=== PATIENT | male | born 1995 ===

== ENCOUNTER 2019-02-06 17:40 | Emergency (ER) | payer MEDICAID, OTHER ==
[2019-02-06 17:50] VITALS: RESP 18
--- NOTE | 2019-02-06 18:09 | ED PDOC ---
Lower Extremity Pain/Injury Time Seen by Provider: 02/06/19 17:54 Chief Complaint (Nursing): Lower Extremity Problem/Injury Chief Complaint (Provider): Left Knee Pain History Per: Patient History/Exam Limitations: no limitations Onset/Duration Of Symptoms: Days (x1) Current Symptoms Are (Timing): Still Present Additional Complaint(s): 23 year old male presents to the ED for evaluation of a left knee injury. Patient states "I subluxed my patella" yesterday during a trip and fall down one step landing on the knee. He reports since having decreased ROM, swelling, and pain to the knee. Otherwise, denies numbness and tingling. Of note, patient has a previous left knee surgery. PMD: Mane Sahni Past Medical History Reviewed: Historical Data, Nursing Documentation, Vital Signs Vital Signs: Last Vital Signs Temp 98.5 F 02/06/19 17:49 Pulse 56 L 02/06/19 17:49 Resp 18 02/06/19 17:49 BP 132/76 02/06/19 17:49 Pulse Ox 98 02/06/19 17:49 - Medical History PMH: No Chronic Diseases - Surgical History Other surgeries: left knee surgery - Family History Family History: States: Unknown Family Hx - Living Arrangements Living Arrangements: With Family - Social History Current smoker - smoking cessation education provided: No Alcohol: None Drugs: Denies - Allergies Allergies/Adverse Reactions: Allergies Allergy/AdvReac Type Severity Reaction Status Date / Time No Known Allergies Allergy Verified 02/06/19 17:48 Review of Systems ROS Statement: Except As Marked, All Systems Reviewed And Found Negative Musculoskeletal: Positive for: Other (left knee pain and swelling) Neurological: Negative for: Numbness (or tingling) Physical Exam - Reviewed Nursing Documentation Reviewed: Yes Vital Signs Reviewed: Yes - Physical Exam Appears: Positive for: No Acute Distress Head Exam: Positive for: ATRAUMATIC, NORMOCEPHALIC Skin: Positive for: Normal Color, Warm, Dry Eye Exam: Positive for: Normal appearance Neck: Positive for: Normal, Painless ROM, Supple Cardiovascular/Chest: Positive for: Regular Rate, Rhythm Respiratory: Positive for: Normal Breath Sounds. Negative for: Respiratory Distress Pulses-Dorsalis Pedis (L): 2+ Pulses-Dorsalis Pedis (R): 2+ Pulses-Post. Tibialis (L): 2+ Pulses-Post. Tibialis (R): 2+ Back: Positive for: Normal Inspection Extremity: Positive for: Swelling (effusion circumferential around patella), Other (posterior drawer test equivocally positive; anterior drawer test negative; valgus / varus laxity negative; old surgical incision noted over patella with scar tissue around distal edge) Neurological/Psych: Positive for: Awake, Alert, Oriented (x3) - ECG O2 Sat by Pulse Oximetry: 98 (RA) Pulse Ox Interpretation: Normal Medical Decision Making Medical Decision Making: Time: 1804 Initial Impression: r/o left knee fracture Initial Plan: --Toradol 60mg IM --Tylenol 650mg PO --Left knee XR 4 views left knee show no acute fracture or dislocation and there is soft tissue swelling about the knee as well as a suprapatellar knee joint effusion. Impression: No acute fracture or dislocation. Soft tissue swelling present. Knee joint effusion. Pt refuses crutches as he has brought his own referral to ortho\\ pt stable for discharge Scribe Attestation: Documented by Cherelle Murphy, acting as a scribe for Grady Rush PA-C. Provider Scribe Attestation: All medical record entries made by the Scribe were at my direction and personally dictated by me. I have reviewed the chart and agree that the record accurately reflects my personal performance of the history, physical exam, medical decision making, and the department course for this patient. I have also personally directed, reviewed, and agree with the discharge instructions and disposition. Disposition - Clinical Impression Clinical Impression: Knee pain, acute - Patient ED Disposition Is Patient to be Admitted: No Doctor Will See Patient In The: Office Counseled Patient/Family Regarding: Diagnosis, Need For Followup, Rx Given - Disposition Referrals: Jagdish Lorenzo III, MD [Staff Provider] - Disposition: Routine/Home Disposition Time: 20:01 Condition: STABLE Forms: [employer]oc[employer] ([employer])
[2019-02-06 20:14] VITALS: BP 118/70; PULSE 70; TEMP 98; O2SAT 99
--- NOTE | 2019-02-07 09:11 | RAD ---
Date of service: 02/06/2019 PROCEDURE: Left Knee Radiographs. HISTORY: Pain. COMPARISON: None. TECHNIQUE: 4 views obtained. FINDINGS: BONES: No acute fracture or destructive bony lesion identified. JOINTS: No dislocation or subluxation apparent. No osteoarthritis. JOINT EFFUSION: [id number] suprapatellar bursa effusion noted. OTHER FINDINGS: None. IMPRESSION: No dislocation, fracture or subluxation apparent. A [id number] suprapatellar bursa effusion is suggested.
== END 2019-02-06 20:13 | disposition home or self-care (01) ==
LOC: H.ER 17:40
DX: M25.562 Pain in left knee (principal); W10.9XXA Fall (on) (from) unspecified stairs and steps, initial encounter
CPT/HCPCS: 73564; 96372; 99284; J1885